=== PATIENT | female | born 1995 | race Native Hawaiian/Other Pacific Islander ===

== ENCOUNTER 2019-01-22 16:50 | Emergency (ER) | payer OTHER ==
[~2019-01-22] VITALS: Ht 175.3 cm; Wt 149.7 kg
[~2019-01-22 16:50] MED LIST: BENZONATATE100 MG PO; CEFD300C2 PO; FLUT0.05 NAS; MEDR150I3 IM; MEDROL DOSEPAK4 MG OR
[2019-01-22 19:10] VITALS: BP 133/95; TEMP 98.2
== END 2019-01-22 19:10 | disposition home or self-care (01) ==
LOC: ED 16:50
DX: O89.4 Spinal and epidural anesthesia-induced headache during the puerperium (principal)
CPT/HCPCS: 96372; 99283; J1170; J2405

== ENCOUNTER 2019-07-06 13:28 | Emergency (ER) | payer OTHER ==
[~2019-07-06] VITALS: Ht 175.3 cm; Wt 149.7 kg
[2019-07-06 13:49] VITALS: TEMP 98.1
[2019-07-06 14:59] LABS: PLATELET COUNT 293 K/uL (152-353)
[2019-07-06 15:11] LABS: POTASSIUM 3.8 mmol/L (3.6-5.2)
[2019-07-06 16:10] VITALS: BP 112/66
== END 2019-07-06 16:10 | disposition home or self-care (01) ==
LOC: ED 13:28
PROVIDERS: Family Medicine
DX: K52.9 Noninfective gastroenteritis and colitis, unspecified (principal); N39.0 Urinary tract infection, site not specified
CPT/HCPCS: 80053; 81000; 85027; 87077; 87086; 87088; 87186; 99283

== ENCOUNTER 2022-07-25 13:53 | Emergency (ER) | payer OTHER ==
[~2022-07-25] VITALS: Ht 175.3 cm; Wt 149.7 kg
[2022-07-25 15:36] VITALS: BP 143/80; TEMP 98.3
== END 2022-07-25 15:36 | disposition home or self-care (01) ==
LOC: ED 13:53
DX: R50.9 Fever, unspecified (principal); Z98.890 Other specified postprocedural states
CPT/HCPCS: 87070; 87205; 99282